=== PATIENT | female | born 1970 | race Two or more races ===

== ENCOUNTER 2019-12-26 18:10 | Emergency (ER) | payer MEDICAID, OTHER ==
[~2019-12-26] VITALS: Ht 152.4 cm; Wt 77.8 kg
[2019-12-26 18:20] VITALS: BP 118/81
--- NOTE | 2019-12-26 18:37 | NUR ---
PT NOT IN RM, AMBULATED TO BR PER SIG OTHER.
== END 2019-12-26 19:46 | disposition home or self-care (01) ==
LOC: ED 19:39
DX: T18.198A Other foreign object in esophagus causing other injury, initial encounter (principal); X58.XXXA Exposure to other specified factors, initial encounter; Y93.89 Activity, other specified; Y92.89 Other specified places as the place of occurrence of the external cause; Y99.8 Other external cause status
CPT/HCPCS: 70360; 99283